=== PATIENT | female | born 1965 | race African-American/Black ===

== ENCOUNTER 2021-08-27 18:06 | Emergency (ER) | payer OTHER | END 2021-08-27 19:37 | disposition home or self-care (01) | LOC: CSHERS 18:06 | DX: U07.1 COVID-19 (principal); I10 Essential (primary) hypertension; F17.210 Nicotine dependence, cigarettes, uncomplicated | CPT/HCPCS: 99283; U0003; U0005 ==

== ENCOUNTER 2024-12-15 08:29 | Outpatient (CLI) | payer OTHER, MEDICAID | END 2024-12-15 08:30 | LOC: CSHSLEEP 08:29 | PROVIDERS: ATTEND Internal Medicine | DX: G47.33 Obstructive sleep apnea (adult) (pediatric) (principal) | CPT/HCPCS: 95811 ==